=== PATIENT | male | born 1955 | race African-American/Black ===

== ENCOUNTER 2024-06-10 15:30 | Outpatient (CLI) | payer OTHER | END 2024-06-10 15:31 | disposition home or self-care (01) | LOC: CSHCP 15:30 | PROVIDERS: ATTEND Internal Medicine | DX: R91.1 Solitary pulmonary nodule (principal); J44.9 Chronic obstructive pulmonary disease, unspecified | CPT/HCPCS: 94060; 94664; 94726; 94729; 94760 ==